=== PATIENT | male | born 1980 | race Two or more races ===

== ENCOUNTER 2021-06-23 18:13 | Emergency (ER) | payer OTHER ==
[2021-06-23] MEDS ORDERED: Cyclobenzaprine 10 MG Tab PO ONE (19:07)
[2021-06-23] MEDS ORDERED: Ketorolac 60 MG/2 ML SDV IM ONE (19:07)
--- NOTE | 2021-06-23 19:37 | EDM.PDOC ---
ED HPI GENERAL MEDICAL PROBLEM - General Chief Complaint: Back Pain or Injury Stated Complaint: LOW BACK PAIN Time Seen by Provider: 06/23/21 18:23 Source of Information: Reports: Patient, Significant Other History Limitations: Reports: No Limitations - History of Present Illness INITIAL COMMENTS - FREE TEXT/NARRATIVE: Patient presents with pain across low back. This is chronic since a work injury at [employer] in December 2019. It is worse than usual today but no recent injury. He lost his job in [place] so moved up here with a cousin; says he has had 5 flares like this in recent weeks. He has only been using Tylenol ext strength lately. For awhile he had found decent relief using CBD but that began to lose effect after 2 months. 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 ED EXAM,LOWER BACK PAIN/INJURY - Physical Exam Exam: See Below Exam Limited By: No Limitations General Appearance: Alert, WD/WN, No Apparent Distress Eye Exam: Bilateral Eye: EOMI, Normal Inspection, PERRL Ears: Normal External Exam, Hearing Grossly Normal Nose: Normal Inspection, No Blood Throat/Mouth: Normal Inspection, Normal Lips, Normal Voice, No Airway Compromise Head: Atraumatic, Normocephalic Neck: Normal Inspection, Full Range of Motion Respiratory/Chest: No Respiratory Distress, Lungs Clear, Normal Breath Sounds Cardiovascular: Regular Rate, Rhythm, No Murmur GI/Abdominal: Normal Bowel Sounds, Soft Back Exam: Other (tenderness generally across low back and upper buttocks without significant spasm evident). No: Vertebral Tenderness Extremities: Normal Inspection, Normal Range of Motion Neurological: Alert, Normal Mood/Affect, Normal Dorsiflexion, Normal Plantar Flexion, No Motor/Sensory Deficits, Oriented x 3, Straight Leg Raise (L) (normal), Straight Leg Raise (R) (normal) Psychiatric: Normal Affect, Normal Mood Skin Exam: Warm, Dry, Intact, Normal Color, No Rash Course - Vital Signs Last Recorded V/S: Last Vital Signs Temp 97.4 F 06/23/21 18:48 Pulse 74 06/23/21 18:48 Resp 16 06/23/21 18:48 BP 154/89 H 06/23/21 18:48 Pulse Ox 96 06/23/21 18:48 - Orders/Labs/Meds Meds: Medications Discontinued Medications Generic Name Dose Route Start Last Admin Trade Name Freq PRN Reason Stop Dose Admin Cyclobenzaprine HCl 10 mg 06/23/21 19:07 Cyclobenzaprine 10 Mg Tab PO 06/23/21 19:08 ONETIME ONE Ketorolac Tromethamine 60 mg 06/23/21 19:07 Ketorolac 60 Mg/2 Ml Sdv IM 06/23/21 19:08 ONETIME ONE - Re-Assessments/Exams Free Text/Narrative Re-Assessment/Exam: 06/23/21 20:29 Discussed findings and treatment plan with patient. Definitely want to avoid opioids with this and patient agrees. Toradol 60 IM and Cyclobenzaprine 10 mg po given in ER with Rx for cyclobenzaprine 10 mg #15, 1 po tid prn at discharge. Discharged to home in stable condition. Departure - Departure Time of Disposition: 19:38 Disposition: Home, Self-Care 01 Condition: Good Clinical Impression: Chronic low back pain without sciatica Qualifiers: Back pain laterality: bilateral Qualified Code(s): M54.5 - Low back pain; G89.29 - Other chronic pain - Discharge Information Instructions: Chronic Back Pain, [id number] Additional Instructions: Drink 8 cups of water daily. Take Ibuprofen 600 mg every 8 hours. Take Cyclobenzaprine as directed. You can continue Tylenol as needed with these medications; don't take more than 3000 mg/day. Follow up in 3-4 days with a clinic provider for recheck if not improving. If worsening, go to clinic or ER as needed. Sepsis Event Note (ED) - Evaluation Sepsis Screening Result: No Definite Risk - Focused Exam Vital Signs: Vital Signs Temp Pulse Resp BP Pulse Ox 06/23/21 18:48 97.4 F 74 16 154/89 H 96
== END 2021-06-23 19:45 | disposition home or self-care (01) ==
LOC: KA.ED 18:13
DX: G89.29 Other chronic pain (principal); M54.5 Low back pain
CPT/HCPCS: 96372; 99283; A9270-GY; J1885